=== PATIENT | female | born 1960 | race Caucasian/White ===

== ENCOUNTER 2019-01-01 12:09 | Emergency (ER) | payer MEDICAID ==
[~2019-01-01] VITALS: Wt 80.0 kg
[2019-01-01] MEDS ORDERED: HYDR25TA6 PO (13:28)
[2019-01-01] MEDS ORDERED: LEVO50TA7 PO (13:28)
[2019-01-01] MEDS ORDERED: SITA50TA2 PO (13:28)
[2019-01-01] MEDS ORDERED: METO-448 PO (13:28)
[2019-01-01] MEDS ORDERED: IBUPROFEN 800 MG TAB PO ONE (13:30)
--- NOTE | 2019-01-01 15:30 | ERD ---
ER Documentation Chief Complaint Chief Complaint LLQ ABD PAIN , JUST SEEN IN [facility] FOR SAME. HERE FOR NO RELEIF. HPI 58-year-old female presenting with left lower abdominal pain for the past few weeks. She was recently at another hospital, [facility], earlier today where she had blood work done, urinalysis, CT scan of the abdomen and pelvis which were all reported to be normal. However she states that she continues to have abdominal pain and would like to know why. The pain is in the area of her lower abdominal surgical scar. She does not feel pain when she is laying down. However with movement and with walking she has worsening pain. She describes as a sharp, pulling pain, with no associated symptoms such as fever, chills, nausea, vomiting, diarrhea, constipation, melena or hematochezia. No dysuria or hematuria. ROS All systems reviewed and are negative except as per history of present illness. Medications Home Meds Reported Medications Sitagliptin* (Januvia*) 50 Mg Tablet, 50 MG PO DAILY, #30 TAB 01/01/19 Levothyroxine Sodium* (Levothyroxine Sodium*) 50 Mcg Tablet, 50 MCG PO BEFORE BREAKFAST, #30 TAB 01/01/19 Hydrochlorothiazide* (Hydrochlorothiazide*) 25 Mg Tab, 25 MG PO DAILY, #30 TAB 01/01/19 Metoprolol Tartrate* (Lopressor*) 25 Mg Tab, 25 MG PO DAILY, #60 TAB 01/01/19 Allergies Allergies: Coded Allergies: No Known Allergy (Unverified , 01/01/19) PMhx/Soc Medical and Surgical Hx: pt denies Medical Hx, pt denies Surgical Hx History of Surgery: Yes (Hysterectomy without oophorectomy) Hx Cardiac Disorders: Yes (Hypertension) Hx Miscellaneous Medical Probl: Yes (Uterine fibroids, diabetes) Hx Alcohol Use: No Hx Substance Use: No Hx Tobacco Use: No Smoking Status: Never smoker FmHx Family History: No diabetes Physical Exam Vitals Vital Signs Date Temp Pulse Resp B/P (MAP) Pulse Ox O2 O2 Flow FiO2 Time Delivery Rate 01/01/19 79 20 130/78 99 Room Air 15:56 (95) 01/01/19 98.0 65 18 150/71 98 12:12 (97) Physical Exam Const: No acute distress Head: Atraumatic Eyes: Normal Conjunctiva ENT: Normal External Ears, Nose and Mouth. Neck: Full range of motion. No meningismus. Resp: Clear to auscultation bilaterally Cardio: Regular rate and rhythm, no murmurs Abd: Lower abdominal surgical scar, well-healed. Tenderness in the left lateral portion of the scar which reproduces pain. Otherwise abdomen soft, non tender to deep palpation, non distended. Normal bowel sounds Skin: No petechiae or rashes Back: No midline or flank tenderness Ext: No cyanosis, or edema Neur: Awake and alert Psych: Normal Mood and Affect Results 24 hrs Laboratory Tests Test 01/01/19 14:48 Bedside Urine pH (LAB) 5.5 Bedside Urine Protein (LAB) Negative Bedside Urine Glucose (UA) Negative Bedside Urine Ketones (LAB) Negative Bedside Urine Blood Trace-lysed Bedside Urine Nitrite (LAB) Negative Bedside Urine Leukocyte Esterase (L Negative Current Medications Medications Dose Sig/Shantelle Start Time Status Last (Trade) Ordered Route PRN Stop Time Admin Dose Reason Admin Ibuprofen 800 mg ONCE ONCE 01/01/19 DC 01/01/19 (Motrin) PO 13:30 13:38 01/01/19 13:31 Procedures/MDM EMERGENT LABS AND DIAGNOSTIC STUDIES: Lab Results above were reviewed and interpreted by me. Urine dip shows no evidence of infection, microscopic hematuria noted Radiology Results as interpreted by Radiology below were reviewed by Charmaine Reyes MD: Ultrasound pelvis: IMPRESSION: Status post hysterectomy. Ovaries not visualized. No free fluid. Initial Nursing notes reviewed. Previous Medical Records requested via the Electronic Health Record. EMERGENCY DEPARTMENT COURSE / MEDICAL DECISION MAKING: Patient is presenting with left lower quadrant pain which I believe is secondary to scar tissue from her surgical wound. I have a low suspicion for acute surgical abdomen or diverticulitis. Patient's vitals are unremarkable. I did speak with a physician at [facility] to discuss her test results from earlier today and it seems that everything was normal without any abnormalities to explain the patient's pain. I explained this to the patient. However she was very concerned about her pain so I recommended we do a pelvic ultrasound to see if we can visualize her ovaries for possible ovarian pathology causing her symptoms. However ovaries were not visualized. I did a very low suspicion for ovarian torsion. I feel the patient is stable for discharge with continued outpatient follow-up. Patient's blood pressure was elevated (>120/80) but appears stable without evidence of hypertensive emergency or urgency. The patient was counseled about the risks of hypertension and urged to pursue outpatient monitoring and therapy within a week with their primary care physician. Departure Diagnosis: Primary Impression: Abdominal pain Abdominal location: left lower quadrant Qualified Codes: R10.32 - Left lower quadrant pain Condition: Stable MELISSA REYES MD January 01, 2019 15:30
[2019-01-01 15:56] VITALS: BP 130/78; PULSE 79; RESP 20
== END 2019-01-01 15:58 | disposition home or self-care (01) ==
LOC: E/R 12:09
DX: R10.32 Left lower quadrant pain (principal)
CPT/HCPCS: 76830; 76856; 81003; Z7502; Z7610